=== PATIENT | female | born 1975 | race Caucasian/White ===

== ENCOUNTER 2018-10-21 10:48 | Day surgery (SDC) | payer MEDICAID, OTHER ==
[2018-10-21] MEDS ORDERED: Marcaine 0.5% SDV 10 ML IJ ONE (10:49)
[2018-10-21] MEDS ORDERED: Depo-Medrol 40 MG/ML IM ONE (10:49)
[2018-10-21] MEDS ORDERED: Xylocaine 1% Vial 30 ML PF IJ ONE (10:49)
--- NOTE | 2018-10-21 13:39 | XRAY ---
10 seconds fluoroscopy time in surgery for left knee injection.
--- NOTE | 2018-10-21 13:40 | XRAY ---
8 seconds fluoroscopy time in surgery for right knee injection.
--- NOTE | 2018-10-21 13:40 | XRAY ---
Indication: Left knee injection. Intraoperative fluoroscopy was provided for 10 seconds. Single digital spot image submitted for interpretation demonstrates a needle tip projecting over the intercondylar notch. Small amount of contrast injected for needle tip placement. Correlate with intraoperative findings/report.
--- NOTE | 2018-10-21 13:50 | XRAY ---
Indication: Right knee injection. Intraoperative fluoroscopy was provided for 8 seconds. Single digital spot image submitted for interpretation demonstrates a needle tip projecting over the intercondylar notch. Small amount of contrast injected for needle tip placement. Correlate with intraoperative findings/report.
== END 2018-10-21 13:35 | disposition home or self-care (01) ==
LOC: SDC-PAIN 10:48
PROVIDERS: ATTEND Psychiatry & Neurology Pain Medicine
DX: M17.0 Bilateral primary osteoarthritis of knee (principal); E11.9 Type 2 diabetes mellitus without complications; Z79.899 Other long term (current) drug therapy; F41.8 Other specified anxiety disorders; K21.9 Gastro-esophageal reflux disease without esophagitis; G47.30 Sleep apnea, unspecified; M06.9 Rheumatoid arthritis, unspecified; J45.909 Unspecified asthma, uncomplicated
CPT/HCPCS: 73560; 77002; J1030; J2001

== ENCOUNTER 2019-05-05 12:22 | Day surgery (SDC) | payer OTHER ==
[2019-05-05] MEDS ORDERED: Xylocaine 1% Vial 30 ML PF IJ ONE (12:23)
[2019-05-05] MEDS ORDERED: Depo-Medrol 40 MG/ML IM ONE (12:23)
[2019-05-05] MEDS ORDERED: Marcaine 0.5% SDV 10 ML IJ ONE (12:23)
--- NOTE | 2019-05-05 14:53 | XRAY ---
Indication: Right knee injection. Intraoperative fluoroscopy was provided for 8 seconds. Single digital spot image submitted for interpretation demonstrates needle tip projecting over the right femur intercondylar notch. Small amount of contrast injected for needle tip placement. Correlate with intraoperative findings/report.
--- NOTE | 2019-05-05 14:53 | XRAY ---
Indication: Left knee injection. Intraoperative fluoroscopy was provided for 8 seconds. Single digital spot image submitted for interpretation demonstrates needle tip projecting over the left femur intercondylar notch. Small amount of contrast injected for needle tip placement. Correlate with intraoperative findings/report.
--- NOTE | 2019-05-05 14:55 | XRAY ---
8 seconds fluoroscopy time in surgery for right knee injection.
--- NOTE | 2019-05-05 15:05 | XRAY ---
8 seconds fluoroscopy time in surgery for left knee injection.
== END 2019-05-05 14:24 | disposition home or self-care (01) ==
LOC: SDC-PAIN 12:22
PROVIDERS: ATTEND Psychiatry & Neurology Pain Medicine
DX: M17.0 Bilateral primary osteoarthritis of knee (principal); E11.9 Type 2 diabetes mellitus without complications; K21.9 Gastro-esophageal reflux disease without esophagitis; G47.30 Sleep apnea, unspecified; M06.9 Rheumatoid arthritis, unspecified; J45.909 Unspecified asthma, uncomplicated; Z79.899 Other long term (current) drug therapy
CPT/HCPCS: 20610; 73560; 77002; 82962; 84703; J1030; J2001; Q9966